=== PATIENT | male | born 1940 ===

== ENCOUNTER 2017-10-15 14:32 | Outpatient (CLI) | payer OTHER, BC | END 2017-10-15 15:00 | disposition home or self-care (01) | LOC: NUCLEAR 14:32 | DX: M81.0 Age-related osteoporosis without current pathological fracture (principal) ==

== ENCOUNTER 2018-03-04 11:54 | Outpatient (CLI) | payer OTHER, BC | END 2018-03-04 12:00 | disposition home or self-care (01) | LOC: SONOGRAMA 11:54 | DX: I71.4 Abdominal aortic aneurysm, without rupture (principal) ==

== ENCOUNTER 2018-11-14 10:34 | Outpatient (CLI) | payer OTHER, BC | END 2018-11-14 10:36 | disposition home or self-care (01) | LOC: SONOGRAMA 10:34 → MAMO-SONO 10:45 | DX: I71.4 Abdominal aortic aneurysm, without rupture (principal) ==

== ENCOUNTER 2019-05-09 11:01 | Outpatient (CLI) | payer OTHER, BC | END 2019-05-09 11:04 | disposition home or self-care (01) | LOC: RAD 11:01 | DX: R05 Cough (principal) ==

== ENCOUNTER → 2020-04-13 | Outpatient (CLI) | payer OTHER, BC | END | disposition home or self-care (01) | LOC: PPH VACUNA | PROVIDERS: ATTEND Emergency Medicine Pediatric Emergency Medicine | DX: Z23 Encounter for immunization (principal) ==

== ENCOUNTER 2020-08-09 09:38 | Outpatient (CLI) | payer OTHER, BC | END 2020-08-09 09:44 | disposition home or self-care (01) | LOC: RAD 09:38 | PROVIDERS: ATTEND Family Medicine | DX: M54.5 Low back pain (principal); M81.0 Age-related osteoporosis without current pathological fracture ==

== ENCOUNTER 2020-11-11 15:43 | Outpatient (CLI) | payer OTHER, BC | END 2020-11-11 15:49 | disposition home or self-care (01) | LOC: RAD 15:43 | PROVIDERS: ATTEND Family Medicine | DX: M25.551 Pain in right hip (principal) ==

== ENCOUNTER 2020-12-05 08:00 | Outpatient (CLI) | payer OTHER, BC | END 2020-12-05 08:30 | disposition home or self-care (01) | LOC: PPH VACUNA 08:00 | DX: Z23 Encounter for immunization (principal) ==

== ENCOUNTER 2021-08-15 10:00 | Outpatient (CLI) | payer OTHER, BC | END 2021-08-15 10:30 | disposition home or self-care (01) | LOC: PPH VACUNA 10:00 | PROVIDERS: ATTEND Emergency Medicine Pediatric Emergency Medicine | DX: Z23 Encounter for immunization (principal) ==

== ENCOUNTER 2021-12-19 10:13 | Outpatient (CLI) | payer OTHER, BC | END 2021-12-19 10:18 | disposition home or self-care (01) | LOC: PPH VACUNA 10:13 | PROVIDERS: ATTEND Emergency Medicine Pediatric Emergency Medicine | DX: Z23 Encounter for immunization (principal) ==

== ENCOUNTER 2022-03-05 11:21 | Outpatient (CLI) | payer OTHER, BC | END 2022-03-05 11:31 | disposition home or self-care (01) | LOC: RAD 11:21 | PROVIDERS: ATTEND Family Medicine | DX: J84.10 Pulmonary fibrosis, unspecified (principal); R05.3 Chronic cough ==

== ENCOUNTER 2022-04-20 13:01 | Outpatient (CLI) | payer OTHER, BC | END 2022-04-20 13:08 | disposition home or self-care (01) | LOC: TOM 13:01 | PROVIDERS: ATTEND Internal Medicine Pulmonary Disease | DX: J18.9 Pneumonia, unspecified organism (principal); J84.10 Pulmonary fibrosis, unspecified; Z94.9 Transplanted organ and tissue status, unspecified; Z87.891 Personal history of nicotine dependence ==

== ENCOUNTER 2022-08-14 | Outpatient (CLI) | payer OTHER, BC | END 2022-08-14 00:15 | disposition home or self-care (01) | LOC: PPH VACUNA | PROVIDERS: ATTEND Emergency Medicine Pediatric Emergency Medicine | DX: Z23 Encounter for immunization (principal) ==

== ENCOUNTER 2024-10-26 10:40 | Outpatient (CLI) | payer OTHER, BC | END 2024-10-26 10:42 | disposition home or self-care (01) | LOC: RAD 10:40 | PROVIDERS: ATTEND Internal Medicine | DX: I10 Essential (primary) hypertension (principal) ==